=== PATIENT | female | born 1975 | race Hispanic/Latino ===

== ENCOUNTER 2022-03-03 08:39 | Emergency (ER) | payer BC ==
--- OUTSIDE RECORDS SUMMARY | 2022-03-03 08:42 | XMS REPORT | Continuity of Care Document ---
:1975 Author Organization [facility] t Address [address] [place] [address] [address]. [address]hawa [address] [place] [address] Care Team Providers Name Role Phone ALETA RIGGS Primary Care Physician Unavailable TAYLOR OSWALD Attending Clinician Unavailable Darian WHTaylor GRIGSBY Attending Clinician [phone] Aleta Larry Attending Clinician ROSALIND ESCOBAR Attending Clinician Unavailable TOMA FLORES Attending Clinician Unavailable T[place] FLORES Attending Clinician Unavailable FLORA FUNK Attending Clinician Unavailable ALETA RIGGS Attending Clinician Unavailable DOMINIQUE HOFFMANN Attending Clinician Unavailable ELLA MILES Attending Clinician Unavailable AURA VOGEL Attending Clinician Unavailable TAYLOR OSWALD Admitting Clinician Unavailable Payers Payer Name Policy Type Policy Number Effective Date Expiration Date S [facility] - [id number] 2020 00:00:00 OUT OF STATE Problems Condition Condition Condition Status Onset Resolution Last Treating Co mments Source Name Details Category Date Date Treatment Clinician Date Other Other Disease Active Univers general general 4-20 [place] of [place] advice 00 Ca dical for for Branch contracept contracept tiffany tiffany management management Obesity Obesity Disease Active Univers (BMI (BMI 4-20 ity of 30-39.9) 30-39.9) 00:00: [address] Branch Neuropathy Neuropathy Disease Active U nivers 4-06 ity of 00:00: [place] 00 Medical Branch Varicose Varicose Disease Active Unive rs veins of veins of 4-06 [place] of both lower [place] extrem[place] extremitie 00 Me dical s with s with Branch pain pain History of History of Disease Active U nivers bilateral bilateral 3-16 ity of tubal tubal 00:00: [place] ligation ligation 00 Medica l Branch BMI BMI Disease Active Univers 38.0-38.9, 38.0-38.9, 3-16 it y of adult adult 00:00: [place] 00 Medical Branch Elevated Elevated Disease Active Unive rs BP without BP without 3-16 it y of diagnosis [place] 00 Medical hypertensi hypertensi Br anch on on Allergies, Adverse Reactions, Alerts Allergy Allergy Status Severity Reaction(s) Onset Inactive Treating Comm ents Source Name Type Date Date Clinician NO KNOWN Drug Active [facility] ALLERGIE Class ity of S [facility] Social History Social Habit Start Date Stop Date Quantity Comments Source Alcohol intake 2021-10-18 2021-10-18 Ex-drinker [facility] 00:00:00 00:00:00 (finding) [facility] Tobacco use and 2020-06-22 2020-06-22 Smokeless tobacco Un iversity of exposure 00:00:00 00:00:00 non-user [facility] Sex Ass[birth year] [facility] y of 00:00:00 00:00:00 [facility] Smoking Status Start Date Stop Date Source Never smoked tobacco [facility] Medications Ordered Filled Start Stop Current Ordering Indication Dosage Frequency Signature Comments Components Source Medication Medication Date Date Medication? Clinician (SIG) Name Name Cholecalcif Yes [id number] 5000U Take 1 Univers morales, 7-22 tablet by ity of Vitamin D3, 00:00: mouth [place] (VITAMIN 00 daily. Medical D3) 125 mcg Branch (5,000 unit) tablet lisinopriL Yes [id number] 5mg Take 1 U nivers 5 mg tablet 7-06 tablet by ity of 00:00: mouth [place] 00 daily. Medical Branch triamcinolo Yes [id number] Apply to [facility] 16 area(s) 2 ity of acetonide 00:00: (two) [place] 0.1 % cream 00 times Medical daily. Branch Immunizations Ordered Filled Immunization Date Status Comments [facility] e Immunization Name Name SARS-COV-2 COVID-19 2020-08-20 Completed Unive rsity of MODERNA VACCINE 00:00:00 [facility] SARS-COV-2 COVID-19 2020-07-13 Completed Unive rsity of MODERNA VACCINE 00:00:00 [facility] Procedures This patient has no known procedures. 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 [id number] ity of REGIONAL [id number] Lonnie as MATERNAL [phone] [facility] ica & CHILD [address] [place] [address] 2021-10-18 2021-10-18 Outpatient Kymberly OSWALD [facility] [id number] Univers 09:37:48 23:59:00 TAYLOR penn [facility] 2021-10-18 2021-10-18 [facility] [id number] Univers 09:37:48 23:59:00 Encounter Taylor Schneider SPECIALTY [id number] ity of [facility] [id number] [phone] [place] [id number] 2021-10-18 2021-10-18 Outpatient Kymberly OSWALD [facility] [id number] Univers 00:00:00 00:00:00 TAYLOR penn [facility] 2021-07-27 2021-07-27 [facility] [id number] Univers 15:15:00 16:14:40 Visit Taylor C 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'S REPRESENTATIVE [id number] ity General acute hospital [id number] Lonnie as MATERNAL [id number] [facility] & [address] 2021-07-27 2021-07-27 Outpatient R DARIAN, [facility] [id number] Univers 15:15:00 16:14:40 TAYLOR ity o f [facility] 2021-07-27 2021-07-27 Outpatient R AKINSIPE, [facility] [id number] Univers 15:15:00 15:15:00 TAYLOR ity o f [facility] 2021-07-25 2021-07-25 [facility] [id number] Univers 10:30:00 10:30:00 TAYLOR ity o [facility] 2021-06-16 2021-06-[address] 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 [id number] ity General acute hospital [id number] Lonnie as MATERNAL [phone] [facility] ical & CHILD [address] [place] [address] 2021-01-19 2021-01-19 [facility] [id number] Univers 00:00:00 00:00:00 Aleta [place] [id number] ity [facility] [id number] [place] Profess[place] [id number] Ca [address] 2021-01-10 2021-01-10 Outpatient R SHAWN [facility] [id number] Univers 09:00:00 09:00:00 ROSALIND wiggins [facility] 2020-11-18 2020-11-18 Outpatient R TOMA FLORES [facility] [id number] Univers 14:00:00 14:00:00 TOMA FLORES [facility] 2020-11-01 2020-11-01 Outpatient R [facility] [id number] Univers 14:45:00 [facility]45[facility] 2020-10-18 2020-10-18 Outpatient R BLESSING [facility] [id number] Univers 00:00:00 00:00:00 JUANBREEZY colinpriyanka ayala [facility] 2020-10-12 2020-10-12 Outpatient R KEELY [facility] [id number] Univers 15:00:00 15:00:00 ALETA ayala fili [facility] 2020-10-11 2020-10-11 Outpatient R [facility] [id number] Univers 14:30:00 14:30:00 [facility] 2020-09-27 2020-09-27 Outpatient R TOMA FLORES [facility] [id number] Univers 10:00:00 10:00:00 TOMA FLORES [facility] 2020-09-20 2020-09-20 Outpatient R TOMA FLORES [facility] [id number] Univers 10:00:00 10:00:00 TOMA FLORES [facility] 2020-08-24 2020-08-24 Outpatient R SHUN [facility] [id number] Univers 08:30:00 08:30:00 DOMINIQUE feliciano ayala [facility] 2020-08-23 2020-08-23 Outpatient R [facility] [id number] Univers 14:40:00 14:40:00 [facility] 2020-08-23 2020-08-23 Outpatient R [facility] [id number] Univers 11:00:00 11:00:00 [facility] 2020-08-20 2020-08-20 Outpatient R [facility] [id number] Univers 15:00:00 15:00:00 [facility] 2020-08-10 2020-08-10 Outpatient R JD [facility] [id number] Univers 15:00:00 15:00:00 ELLA [facility] 2020-07-26 2020-07-26 Outpatient R KEELY [facility] [id number] Univers 08:00:00 08:00:00 ALETA dixiepriyanka ayala [facility] 2020-07-19 2020-07-19 [facility] [id number] Univers 08:00:00 08:00:00 ALETA penn [facility] 2020-07-13 2020-07-13 Outpatient Kymberly MILES [facility] [id number] Univers 15:00:00 15:00:00 ELLA [facility] 2020-07-13 2020-07-13 Out[facility] [id number] Univers 14:30:00 14:30:00 ALETA penn [facility] 2020-07-01 2020-07-01 [facility] [id number] Univers 00:00:00 00:00:00 AURA [facility] 2020-06-30 2020-06-30 Outpatient [facility] [id number] Univers 00:00:00 00:00:00 AURA priyanka [facility] 2020-06-22 2020-06-22 Outpatient [facility] [id number] Univers 15:45:00 15:45:00 [facility] Results This patient has no known results.
[2022-03-03] MEDS ORDERED: HYDROCODONE/CHLORPHEN 5 ML/OSYR ONE (09:10)
[2022-03-03 09:53] LABS: SARS-COV-2 RT PCR NEGATIVE (NEGATIVE)
--- NOTE | 2022-03-03 09:56 | EDPHYS ---
Physician Documentation [facility] Name: Clemencia Rojas Age: 46 yrs Sex: Female : 1975 Arrival Date: 03/03/2022 Time: 08:42 Bed IW2 Private MD: ED Physician Pedro Jordan HPI: 03/03 09:15 This 46 yrs old Female presents to ER via Ambulatory with complaints of Cough, snw Chest Pain. 09:15 The patient or guardian reports cough, described as moderate, described as severe, flu snw symptoms. Onset: The symptoms/episode began/occurred 4 day(s) ago. Severity of symptoms: At their worst the symptoms were moderate. Associated signs and symptoms: Pertinent positives: chest pain, with cough. The patient has not experienced similar symptoms in the past. The patient has not recently seen a physician. Historical: - Allergies: 09:06 No Known Allergies; ss - Home Meds: 09:06 None [Active]; ss - PMHx: 09:06 None; ss - PSHx: 09:06 None; ss - Immunization history:: Client reports receiving the 2nd dose of the Covid vaccine. - Social history:: Smoking status: Patient denies any tobacco usage or history of. ROS: 09:14 Eyes: Negative for injury, pain, redness, and discharge. snw 09:14 Neck: Negative for injury, pain, and swelling, Cardiovascular: Negative for chest pain, palpitations, and edema. 09:14 Abdomen/GI: Negative for abdominal pain, nausea, vomiting, diarrhea, and constipation, Back: Negative for injury and pain, : Negative for injury, bleeding, discharge, and swelling, MS/Extremity: Negative for injury and deformity, Skin: Negative for injury, rash, and discoloration, Neuro: Negative for headache, weakness, numbness, tingling, and seizure. 09:14 Constitutional: Positive for body aches, fatigue, malaise. 09:14 ENT: Positive for hoarseness. 09:14 Respiratory: Positive for cough, with no reported sputum, pleurisy, of the chest. Exam: 09:14 Constitutional: This is a well developed, well nourished patient who is awake, alert, snw and in no acute distress. Head/Face: Normocephalic, atraumatic. Eyes: Pupils equal round and reactive to light, extra-ocular motions intact. Lids and lashes normal. Conjunctiva and sclera are non-icteric and not injected. Cornea within normal limits. Periorbital areas with no swelling, redness, or edema. 09:14 Neck: Trachea midline, no thyromegaly or masses palpated, and no cervical lymphadenopathy. Supple, full range of motion without nuchal rigidity, or vertebral point tenderness. No Meningismus. Chest/axilla: Normal chest wall appearance and motion. Nontender with no deformity. No lesions are appreciated. Cardiovascular: Regular rate and rhythm with a normal S1 and S2. No gallops, murmurs, or rubs. Normal PMI, no JVD. No pulse deficits. Respiratory: Lungs have equal breath sounds bilaterally, clear to auscultation and percussion. No rales, rhonchi or wheezes noted. No increased work of breathing, no retractions or nasal flaring. Abdomen/GI: Soft, non-tender, with normal bowel sounds. No distension or tympany. No guarding or rebound. No evidence of tenderness throughout. Back: No spinal tenderness. No costovertebral tenderness. Full range of motion. Skin: Warm, dry with normal turgor. Normal color with no rashes, no lesions, and no evidence of cellulitis. MS/ Extremity: Pulses equal, no cyanosis. Neurovascular intact. Full, normal range of motion. Neuro: Awake and alert, GCS 15, oriented to person, place, time, and situation. Cranial nerves II-XII grossly intact. Motor strength 5/5 in all extremities. Sensory grossly intact. Cerebellar exam normal. Normal gait. Psych: Awake, alert, with orientation to person, place and time. Behavior, mood, and affect are within normal limits. 09:14 ENT: Nose: is normal, Mouth: is normal, Posterior pharynx: is normal, Voice: is hoarse. Vital Signs: 09:03 BP 147 / 71; Pulse 78; Resp 17; Pulse Ox 100% on R/A; Weight 81.65 kg; Height 5 ft. 0 ss in. (152.40 cm); Pain 7/10; 09:07 Temp 98(O); ss 09:03 Body Mass Index 35.15 (81.65 kg, 152.40 cm) ss MDM: 09:54 Patient medically screened. snw 09:56 Data reviewed: vital signs, nurses notes. Data interpreted: Pulse oximetry: on room air snw is 100 %. Interpretation: normal. Counseling: I had a detailed discussion with the patient and/or guardian regarding: the historical points, exam findings, and any diagnostic results supporting the discharge/admit diagnosis, the presence of at least one elevated blood pressure reading (>120/80) during this emergency department visit, lab results, the need for outpatient follow up, to return to the emergency department if symptoms worsen or persist or if there are any questions or concerns that arise at home. Special discussion: Based on the history and exam findings, there is no indication for further emergent testing or inpatient evaluation. I discussed with the patient/guardian the need to see the primary care provider for further evaluation of the symptoms. 03/03 09:07 Order name: COVID-19/FLU A+B; Complete Time: 09:54 ss Administered Medications: 09:14 Drug: Tussionex Pennkinetic ER (chlorpheniramine-hydrocodone) Suspension 5 ml Route: PO;snw 10:03 Follow up: Response: No adverse reaction ss Disposition Summary: 03/03/22 09:55 Discharge Ordered Location: Home snw Condition: Stable snw Diagnosis - Acute laryngitis snw Followup: snw - With: Emergency Department - When: As needed - Reason: Worsening of condition Followup: snw - With: Private Physician - When: 2 - 3 days - Reason: Recheck today's complaints, Continuance of care, Re-evaluation by your physician Discharge Instructions: - Discharge Summary Sheet snw - Laryngitis snw - Upper Respiratory Infection, Adult snw - Cough, Adult snw Forms: - Medication Reconciliation Form snw - Thank You Letter snw - Antibiotic Education snw - Prescription Opioid Use snw Prescriptions: - Zyrtec 10 mg Oral Tablet - take 1 tablet by ORAL route once daily As needed; 20 tablet; Refills: 0, snw Product Selection Permitted - Prednisone 20 mg Oral Tablet - take 2 tablets by ORAL route once daily for 5 days; 10 tablet; Refills: 0, snw Product Selection Permitted - Pepcid 20 mg Oral Tablet - take 1 tablet by ORAL route once daily; 20 tablet; Refills: 0, Product snw Selection Permitted Signatures: Dispatcher [employer] EDKS Martinez, Nabila, COGNOS ARCHITECT-C COGNOS ARCHITECT-Csnw Randa Nath, RN RN ss
--- NOTE | 2022-03-03 09:56 | ER ---
Nurse's Notes [facility] Name: Clemencia Rojas Age: 46 yrs Sex: Female : 1975 Arrival Date: 03/03/2022 Time: 08:42 Bed IW2 Private MD: Diagnosis: Acute laryngitis Presentation: 03/03 09:03 Chief complaint: Spouse and/or significant other states: coughing x 4-5 days and ss hoarseness that began today. Coronavirus screen: Client denies travel out of the [place] in the last 14 days. Ebola Screen: Patient denies exposure to infectious person. Patient denies travel to an Ebola-affected area in the 21 days before illness onset. Initial Sepsis Screen: Does the patient meet any 2 criteria? No. Patient's initial sepsis screen is negative. Does the patient have a suspected source of infection? No. Patient's initial sepsis screen is negative. Risk Assessment: Do you want to hurt yourself or someone else? Patient reports no desire to harm self or others. Onset of symptoms was February 27, 2022. 09:03 Method Of Arrival: Ambulatory ss 09:03 Acuity: TERRANCE 4 ss Historical: - Allergies: 09:06 No Known Allergies; ss - Home Meds: 09:06 None [Active]; ss - PMHx: 09:06 None; ss - PSHx: 09:06 None; ss - Immunization history:: Client reports receiving the 2nd dose of the Covid vaccine. - Social history:: Smoking status: Patient denies any tobacco usage or history of. Screenin:53 Abuse screen: Denies threats or abuse. Denies injuries from another. Nutritional ss screening: No deficits noted. Tuberculosis screening: No symptoms or risk factors identified. Fall Risk None identified. Assessment: 09:53 General: Appears in no apparent distress. comfortable, Behavior is calm, cooperative, ss Reports feeling ill for > 3 days, Denies fever. Pain: Complains of pain in chest Pain currently is 7 out of 10 on a pain scale. Is continuous, Aggravated by painful cough, deep breathing. Cardiovascular: Capillary refill < 3 seconds is brisk in bilateral fingers. Respiratory: Reports cough that is Airway is patent Respiratory effort is even, unlabored, Respiratory pattern is regular, symmetrical. GI: No signs and/or symptoms were reported involving the gastrointestinal system. 10:07 Neuro: Level of Consciousness is awake, alert. Respiratory: Respiratory effort is even, ss unlabored, Respiratory pattern is regular, symmetrical. Vital Signs: 09:03 BP 147 / 71; Pulse 78; Resp 17; Pulse Ox 100% on R/A; Weight 81.65 kg; Height 5 ft. 0 ss in. (152.40 cm); Pain 7/10; 09:07 Temp 98(O); ss 09:03 Body Mass Index 35.15 (81.65 kg, 152.40 cm) ss ED Course: 08:42 Patient arrived in ED. as 08:58 Nabila Martinez FNP-C is PHCP. snw 08:58 Pedro Jordan MD is Attending Physician. snw 09:06 Triage completed. ss 09:06 Arm band placed on right wrist. ss 09:53 Patient has correct armband on for positive identification. Pulse ox on. ss 10:06 Randa Nath RN is Primary Nurse. ss 10:06 No provider procedures requiring assistance completed. Patient did not have IV access ss during this emergency room visit. Patient maintains SpO2 saturation greater than 95% on room air. Administered Medications: 09:14 Drug: Tussionex Pennkinetic ER (chlorpheniramine-hydrocodone) Suspension 5 ml Route: PO;snw 10:03 Follow up: Response: No adverse reaction ss Medication: 09:53 VIS not applicable for this client. ss Outcome: 09:55 Discharge ordered by . snw 10:06 Discharged to home ambulatory, with family. ss 10:06 Condition: good 10:06 Discharge instructions given to patient, family, Instructed on discharge instructions, follow up and referral plans. medication usage, Demonstrated understanding of instructions, follow-up care, medications, Prescriptions given X 3. 10:07 Patient left the ED. ss Signatures: Nabila Martinez FNP-C GUEST REQUEST RUNNER-Csnw Torie Conner as Randa Nath, RN RN ss
[2022-03-03 10:12] VITALS: BP 147/71; TEMP 98; O2SAT 100
== END 2022-03-03 10:07 | disposition home or self-care (01) ==
LOC: ER 08:39
DX: J04.0 Acute laryngitis (principal); R05.9 Cough, unspecified; Z20.822 Contact with and (suspected) exposure to COVID-19
CPT/HCPCS: 0240U; 99284